=== PATIENT | female | born 1970 | race Two or more races ===

== ENCOUNTER 2020-08-17 12:24 | Day surgery (SDC) | payer OTHER ==
[~2020-08-17 12:24] MED LIST: SINGULAIR10 MG PO
== END 2020-08-17 22:36 | disposition home or self-care (01) ==
LOC: CIR.AMB 12:24
PROVIDERS: ATTEND Orthopaedic Surgery
DX: M77.02 Medial epicondylitis, left elbow (principal); G56.22 Lesion of ulnar nerve, left upper limb; Z20.822 Contact with and (suspected) exposure to COVID-19